=== PATIENT | male | born 1985 | race American Indian/Alaskan Native ===

== ENCOUNTER 2025-07-26 11:59 | Emergency (ER) | payer MEDICAID ==
[2025-07-26 12:14] LABS: BASOPHILS PERCENT AUTO 0.8 % (0.1-1.3); EOSINOPHILS PERCENT AUTO 0.8 % (0.0-5.4); IMMATURE GRAN PERCENT AUTO 0.0 % (0.0-0.7); LYMPHOCYTES ABSOLUTE AUTO 0.48 K/uL (0.8-3.3); LYMPHOCYTES PERCENT AUTO 39.0 % (11.4-47.7); MONOCYTES PERCENT AUTO 1.6 % (3.3-12.6); NEUTROPHILS ABSOLUTE AUTO 0.71 K/uL (1.0-7.6); NEUTROPHILS PERCENT AUTO 57.8 % (40.0-78.1); PLATELET COUNT,PLT 267 K/uL (130-375); RED BLOOD CELL COUNT 6.02 M/uL (4.14-5.76); WHITE BLOOD CELL COUNT,WBC 1.2 K/uL (3.2-11.0)
[2025-07-26 12:20] LABS: BASOPHILS ABSOLUTE AUTO 0.01 K/uL (0.00-0.10); EOSINOPHILS ABSOLUTE AUTO 0.01 K/uL (0.00-0.40); IMMATURE GRAN ABSOLUTE AUTO 0.00 K/uL (0.00-0.23); MONOCYTES ABSOLUTE AUTO 0.02 K/uL (0.20-0.90)
[2025-07-26 12:37] LABS: BASE EXCESS ARTERIAL 0.6 mm/L; BICARBONATE,ARTERIAL 22.6 mmol/L (22.0-26.0); O2 SATURATION ARTERIAL 83.5 % (95.0-98.0); OXYHEMOGLOBIN 81.0 %; PCO2 ARTERIAL 31.6 mmHg (35.0-42.0); PO2 ARTERIAL 47.6 mmHg (75.0-100.0); TOTAL HEMOGLOBIN 18.8 g/dL (13.5-18.0)
[2025-07-26] MEDS: propofoL 1,000 MG/100 ML 100 ML IV SCH (13:05)
[2025-07-26 13:06] LABS: LACTIC ACID 4.5 mmol/L (0.4-2.0)
[2025-07-26] MEDS ORDERED: Naloxone 0.4 MG/ML SDV IVPUSH PRN (13:37)
[2025-07-26] MEDS ORDERED: Propofol 200 MG/20 ML SDV ONE (13:39)
[2025-07-26] MEDS ORDERED: Sodium Chloride 0.9% 10 ML Syringe FLUSH ONE (13:40)
[2025-07-26] MEDS: fentaNYL 100 MCG/2 ML SDV IVPUSH ONE (13:44)
[2025-07-26] MEDS ORDERED: Iopamidol 612 MG/ML 150 ML Bottle IV SCH (13:45)
[2025-07-26] MEDS: LORazepam 2 MG/ML SDV IVPUSH ONE (13:54)
[2025-07-26] MEDS: propofoL 1,000 MG/100 ML 100 ML ONE (13:59)
[2025-07-26] MEDS: Propofol 200 MG/20 ML SDV ONE (14:02)
[2025-07-26] MEDS: fentaNYL 1,000 MCG in Sodium Chloride 0.9% 80 ML IV SCH (14:14)
[2025-07-26] MEDS: Sodium Chloride 0.9% 10 ML Syringe FLUSH ONE (15:00)
[2025-07-26] MEDS: Iopamidol 612 MG/ML 100 ML Bottle IV ONE (15:00)
[2025-07-26] MEDS: metroNIDAZOLE/Normal Saline 500 MG in Premix Bag 1 BAG IV ONE (15:47)
== END 2025-07-26 17:57 | disposition other institution (70) ==
LOC: JP.ED 11:59
DX: J96.01 Acute respiratory failure with hypoxia (principal); J45.909 Unspecified asthma, uncomplicated; Z79.899 Other long term (current) drug therapy
CPT/HCPCS: 31500; 36415; 36600; 71045; 71260; 74177; 80053; 82803; 82947; 83605; 84484; 85025; 86140; 87040; 94640; 96365; 96366; 96367; 96368; 96375; 96376; 99291; 99292; J0692; J1836; J2060; J2704; J3010; J3373; J7030; J7040; J7620; Q9967; A9270-GY; J3490